=== PATIENT | female | born 1995 | race Two or more races ===

== ENCOUNTER 2021-12-14 04:25 | Emergency (ER) | payer OTHER ==
[~2021-12-14] VITALS: Ht 152.4 cm; Wt 68.2 kg
[2021-12-14 06:28] VITALS: BP 129/77
== END 2021-12-14 07:09 ==
LOC: EMS 04:26
DX: Z11.1 Encounter for screening for respiratory tuberculosis (principal)
CPT/HCPCS: 71046; 99283